=== PATIENT | female | born 1985 | race Asian ===

== ENCOUNTER 2022-08-24 15:31 | Emergency (ER) | payer BC ==
[~2022-08-24] VITALS: Ht 165.1 cm; Wt 68.0 kg
[2022-08-24] MEDS ORDERED: HYDROCODONE/ACETAMINOPHEN 5/325MG TABLET PO ONE (16:00)
[2022-08-24 17:30] LABS: BASOPHILS % 0.2 % (0.0-2.0); EOSINOPHILS % 0.2 % (0.0-5.0); HEMATOCRIT. 38.2 % (36.0-48.0); HEMOGLOBIN. 12.7 g/dL (12.0-16.0); LYMPHOCYTES % 12.3 % (20.0-50.0); MEAN CORPUSCULAR HEMOGLOBIN 30.5 pg (28.0-32.0); MEAN CORPUSCULAR VOLUME 91.6 fL (81.0-99.0); MEAN PLATELET VOLUME 8.3 fl (7.4-10.4); MONOCYTES % 5.8 % (2.0-8.0); NEUTROPHILS % 81.5 % (40.0-76.0); PLATELET 261 x1000/uL (130-400); RED BLOOD CELL COUNT 4.18 mill/uL (4.2-5.4); RED CELL DISTRIBUTION WIDTH 13.1 % (11.6-14.6)
[2022-08-24 17:37] LABS: CHLORIDE 109 mEq/L (98-107)
[2022-08-24] MEDS ORDERED: HYDR-4001 MT (18:15)
[2022-08-24 20:00] VITALS: BP 143/58
== END 2022-08-24 21:50 | disposition home or self-care (01) ==
LOC: ER 15:44
DX: S82.61XA Displaced fracture of lateral malleolus of right fibula, initial encounter for closed fracture (principal); V87.8XXA Person injured in other specified noncollision transport accidents involving motor vehicle (traffic), initial encounter; Y93.89 Activity, other specified; Y92.488 Other paved roadways as the place of occurrence of the external cause
CPT/HCPCS: 29515; 36415; 73590; 73610; 73630; 76705; 80053; 85025; 93880; 99284